=== PATIENT | male | born 1985 | race American Indian/Alaskan Native ===

== ENCOUNTER 2016-05-30 11:28 | Outpatient (CLI) | payer BC ==
--- NOTE | 2016-05-30 13:56 | XRay Report ---
ROUTINE CHEST, TWO VIEWS: HISTORY: chest pain. The trachea, heart, mediastinal contour, lung dawson and bony thorax are unremarkable. IMPRESSION: Unremarkable chest x-ray.
--- NOTE | 2016-05-30 13:57 | XRay Report ---
LUMBOSACRAL SPINE, FIVE VIEWS: HISTORY: Low back pain. Only 3 views are presented. Views of the lumbosacral spine demonstrate normal bony alignment, vertebral height and interspace distances. Oblique views show patent foramina and normal apophyseal joint alignment. IMPRESSION: Normal study.
--- NOTE | 2016-05-30 13:57 | XRay Report ---
THORACIC SPINE: History: Upper back pain. Normal bone mineralization. There is mild levoscoliosis in the lower lower thoracic spine. Minimal degenerative disc disease is noted in the midthoracic spine. No fracture, bone lesion or malalignment. The posterior ribs are grossly intact. IMPRESSION: Minimal scoliosis and degenerative changes.
== END 2016-05-30 11:29 | disposition home or self-care (01) ==
LOC: SPVIMAG 11:28
PROVIDERS: ATTEND Family Medicine Adult Medicine
DX: M47.894 Other spondylosis, thoracic region (principal); M41.84 Other forms of scoliosis, thoracic region; M51.34 Other intervertebral disc degeneration, thoracic region
CPT/HCPCS: 71020; 72070; 72110